=== PATIENT | female | born 1970 | race Caucasian/White ===

== ENCOUNTER → 2016-11-11 | Outpatient (CLI) | payer MEDICAID ==
[2016-11-11 13:29] LABS: Cancer Anitgen 125 <5.5 U/mL (<35.1)
== END | disposition home or self-care (01) ==
LOC: LABWHC1 11:56
PROVIDERS: ATTEND Obstetrics & Gynecology
DX: D49.59 Neoplasm of unspecified behavior of other genitourinary organ (principal)
CPT/HCPCS: 36415; 82378; 86304

== ENCOUNTER → 2016-11-20 | Outpatient (CLI) | payer MEDICAID ==
--- NOTE | 2016-11-20 08:34 | CT ---
EXAMINATION TYPE: CT soft tissue neck w con DATE OF EXAM: 11/20/2016 8:26 AM COMPARISON: NONE HISTORY: elevated CEA, hx of ovarian ca,pt states she feels lump in throat, CT DLP: 2134.6 mGycm CONTRAST: CT scan of the neck is performed with IV Contrast, patient injected with 100 mL of Omnipaque 300. Contrast enhanced CT of the neck was performed from the skull base through the lung apices. AIRWAY: The supraglottic, glottic, and subglottic portions of the airway appear patent and free of mass. SALIVARY GLANDS: The submandibular and parotid glands are free of mass or inflammatory process. THYROID GLAND: No nodules or masses seen. LYMPH NODES: No adenopathy seen greater than 1cm. LUNG APICES: No nodule or mass is seen. OTHER: Vascular structures are patent. No significant degenerative change of the cervical spine. N o abscess seen. IMPRESSION: No abnormality of the neck identified at this time. Correlate clinically.
--- NOTE | 2016-11-20 08:40 | CT ---
EXAMINATION TYPE: CT ChestAbdPelvis w con DATE OF EXAM: 11/20/2016 8:26 AM COMPARISON: 05/24/2016 HISTORY: elevated CEA, hx of ovarian ca CT DLP: 2134.6 mGycm CONTRAST: CT scan of the chest, abdomen and pelvis is performed with Oral Contrast and with IV Contrast, patien t injected with 100 mL of Omnipaque 300. CT Chest: LUNGS: The lungs are clear and free of infiltrate or atelectasis. 2 or 3 tiny 3 mm nodules in the rig ht middle lobe are nonspecific. In addition there are 1 or 2 small 3 mm nodules left lower lobe. No p leural effusion or CT evidence of interstitial lung disease. MEDIASTINUM: Thoracic aorta is of normal caliber. The heart is not enlarged. No evidence for media stinal mass or adenopathy. HILAR STRUCTURES: No evidence for mass. No hilar adenopathy is appreciated. OTHER: No significant abnormality. CONTRAST CT ABDOMEN AND PELVIS FINDINGS: LIVER/GB: No calcified gallstones. Stable 1.4 cm hypoattenuating lesion anterior segment right hepa tic lobe. Stable 6 mm low attenuating lesion left hepatic lobe lateral segment. No additional hepatic lesions are identified. Biliary tree is of normal caliber. PANCREAS: No inflammation. No distinct mass. SPLEEN: No splenic enlargement. No lesion seen. ADRENALS: No nodule. No thickening. KIDNEYS/BLADDER: No hydronephrosis. No nephrolithiasis. No disctinct renal mass. BOWEL: Normal appendix. Normal bowel caliber. No inflammation. GENITAL ORGANS: Previously noted large pelvic cystic mass has been removed in the interval. There is been hysterectomy. No evidence for recurrent or residual mass within the pelvis. LYMPH NODES: No greater than 1cm abdominal or pelvic lymph nodes are appreciated. AORTA: No significant abnormality. OSSEOUS STRUCTURES: No significant abnormality is seen. OTHER: Fat-containing umbilical hernia. IMPRESSION: 1. Removal of previously noted large pelvic cystic mass without evidence for residual lesion or tumor recurrence within the pelvis. 2. Stable low attenuating hepatic lesions are likely reflective of cysts. 3. No evidence for adenopathy. 4. Tiny 3 mm pulmonary nodular densities are nonspecific. Continued follow-up is advised.
== END | disposition home or self-care (01) ==
LOC: RADCTMAIN 07:49
PROVIDERS: ATTEND Obstetrics & Gynecology
DX: C56.9 Malignant neoplasm of unspecified ovary (principal); R97.0 Elevated carcinoembryonic antigen [CEA]
CPT/HCPCS: 70491; 71260; 74177; Q9967

== ENCOUNTER → 2016-11-29 | Outpatient (CLI) | payer MEDICAID ==
--- NOTE | 2016-11-29 09:06 | MM ---
Reason for exam: additional evaluation requested from prior study. Last mammogram was performed 10 months ago. History: Patient is postmenopausal and had first child at age 32. Family history of breast cancer in paternal cousin. Took hormonal contraceptives beginning at age 15. Physical Findings: Nurse did not find any significant physical abnormalities on exam. MG 3D Diag Mammo W/Cad LT CC and MLO view(s) were taken of the left breast. Prior study comparison: January 20, 2016, left breast MG 3d work up w/cad LT. January 15, 2016, bilateral MG 3d screening mammo w/cad. February 12, 2012, mammogram, performed at [facility]. There are scattered fibroglandular densities. There is no discrete abnormality. These results were verbally communicated with the patient and result sheet given to the patient on 11/29/16. ASSESSMENT: Negative, BI-RAD 1 RECOMMENDATION: Return to routine screening mammogram schedule for both breasts. Back on schedule for January 2017.
== END | disposition home or self-care (01) ==
LOC: RADMAMWWP 08:08
PROVIDERS: ATTEND Family Medicine
DX: R92.8 Other abnormal and inconclusive findings on diagnostic imaging of breast (principal)
CPT/HCPCS: G0206; G0279

== ENCOUNTER → 2017-02-19 | Outpatient (CLI) | payer MEDICAID ==
--- NOTE | 2017-02-19 14:56 | CT ---
EXAMINATION TYPE: CT ChestAbdPelvis w con DATE OF EXAM: 02/19/2017 INDICATION: malignant neoplasm of unspecified ovary COMPARISON: 11/20/2016 CT DLP: 1611 mGycm CONTRAST: Performed with Oral Contrast and with IV Contrast, patient injected with 100 mL of Omnipaque 300. TECHNIQUE: Axial images at 5 mm thick sections. Reconstructed images in the coronal plane. Delayed images through the kidneys. FINDINGS: CT CHEST: Portion of the thyroid visualized is normal. No suspicious lung nodules or focal infiltrates are present. No enlarged mediastinal or hilar adenopathy is evident. The ascending aorta diameter at the level of the main pulmonary artery is 2.9 cm. The main pulmonary artery diameter at the bifurcation is 2.7 cm. Coronary artery calcification is noted. CT ABDOMEN: There is an anterior abdominal wall hernia in the periumbilical region which contains a p ortion of the transverse colon and fecal debris. No obstruction is evident. Liver: There is a 1.8 cm cyst measuring 4 Hounsfield units right lobe liver. Liver otherwise appears unremarkable. Spleen: Normal Pancreas: Normal Adrenal glands: The adrenal glands are normal. Gallbladder: Normal Kidneys: No masses are evident. No hydronephrosis is present. No cysts are present. Delayed images were obtained through the kidneys, which remain unremarkable. Aorta: Normal Inferior vena cava: Normal. CT PELVIS: Loops of bowel within the abdomen and pelvis are normal. There is moderate fecal retention throug hout the colon. Appendix: Not visualized Urinary bladder: Normal. Genitourinary structures: Uterus and ovaries are not identified. No suspicious fluid is within the ab domen or pelvis. No omental caking is evident. Osseous structures: No suspicious lytic or sclerotic lesions. Tarlov cysts are likely within the sacr um. IMPRESSIONS: 1. No suspicious changes for recurrent or metastatic ovarian cancer. 2. Periumbilical hernia containing a loop of colon. No obstruction is evident. 3. Moderate fecal retention
== END | disposition home or self-care (01) ==
LOC: RADCTMAIN 12:11
PROVIDERS: ATTEND Obstetrics & Gynecology
DX: C56.9 Malignant neoplasm of unspecified ovary (principal); K42.9 Umbilical hernia without obstruction or gangrene
CPT/HCPCS: 71260; 74177; Q9967

== ENCOUNTER → 2017-02-24 | Outpatient (CLI) | payer MEDICAID ==
[2017-02-24 14:03] LABS: Cancer Anitgen 125 5.7 U/mL (<35.1)
== END | disposition home or self-care (01) ==
LOC: LABWHC1 12:54
PROVIDERS: ATTEND Obstetrics & Gynecology
DX: C56.9 Malignant neoplasm of unspecified ovary (principal)
CPT/HCPCS: 36415; 82378; 86301; 86304

== ENCOUNTER → 2017-03-29 | Outpatient (CLI) | payer MEDICAID ==
--- NOTE | 2017-03-30 08:59 | MM ---
Reason for exam: screening (asymptomatic). Last mammogram was performed 4 months ago. History: Patient is postmenopausal, has history of ovarian cancer at age 46, and had first child at age 32. Family history of breast cancer in paternal cousin and breast cancer in mother at age 57. Took hormonal contraceptives beginning at age 15. Physical Findings: A clinical breast exam by your physician is recommended on an annual basis and results should be correlated with mammographic findings. MG 3D Screening Mammo W/Cad Bilateral CC and MLO view(s) were taken. XCCL view(s) were taken of the right breast. Prior study comparison: November 29, 2016, left breast MG 3d diag mammo w/cad LT. January 15, 2016, bilateral MG 3d screening mammo w/cad. No significant changes when compared with prior studies. ASSESSMENT: Benign, BI-RAD 2 RECOMMENDATION: Routine screening mammogram of both breasts in 1 year.
== END | disposition home or self-care (01) ==
LOC: RADMAMWWP 15:04
PROVIDERS: ATTEND Family Medicine
DX: Z12.31 Encounter for screening mammogram for malignant neoplasm of breast (principal)
CPT/HCPCS: 77063; G0202

== ENCOUNTER → 2017-06-25 | Outpatient (CLI) | payer MEDICAID ==
[2017-06-26 02:09] LABS: Cancer Antigen 125 26.2 U/mL (0.0-30.1)
== END | disposition home or self-care (01) ==
LOC: LABWHC1 16:43
PROVIDERS: ATTEND Obstetrics & Gynecology
DX: C56.9 Malignant neoplasm of unspecified ovary (principal)
CPT/HCPCS: 36415; 82378; 86301; 86304

== ENCOUNTER → 2017-10-29 | Outpatient (CLI) | payer MEDICAID ==
--- NOTE | 2017-10-29 12:24 | CT ---
EXAMINATION TYPE: CT ChestAbdPelvis w con DATE OF EXAM: 10/29/2017 COMPARISON: CT chest abdomen and pelvis February 19, 2017 and older studies. HISTORY: Follow up scan per patient for ovarian borderline cancer per order. CT DLP: 1447 mGycm. Automated Exposure Control for Dose Reduction was Utilized. CONTRAST: CT scan of the thorax, abdomen and pelvis is performed with oral and with IV Contrast, patient inject ed with 100 mL of Omnipaque 300. FINDINGS: LUNGS: The lungs are grossly clear, there is no concerning parenchymal mass or nodule identified. T here is no pleural effusion or pneumothorax seen. The tracheobronchial tree is patent. MEDIASTINUM: There are no greater than 1 cm hilar or mediastinal lymph nodes. No pericardial effusi on is seen. OTHER: No additional significant abnormality is seen. LIVER/GB: A few punctate calcifications are redemonstrated scattered throughout the liver. There are few hypodense lesions that are stable presumed benign. PANCREAS: No significant abnormality is seen. SPLEEN: No significant abnormality is seen. ADRENALS: No significant abnormality is seen. KIDNEYS: No significant abnormality is seen. BOWEL: No suspicious small or large bowel dilatation. Persistent moderate prominence of fecal materi al throughout the colon. Correlate for mild/moderate fecal retention. No significant change from prio r. GENITAL ORGANS: Scattered pelvic phleboliths are redemonstrated. Uterus is surgically absent. No susp icious adnexal masses are seen. LYMPH NODES: No greater than 1cm abdominal or pelvic lymph nodes are appreciated. OSSEOUS STRUCTURES: There is redemonstration of prominent Tarlov cysts in the sacrum. OTHER: There is interval repair of umbilical hernia containing bowel. There is new curvilinear densit y or mesh material identified at this level. A few surgical clips in the midline mesentery are redemo nstrated. IMPRESSION: No suspicious new mass or adenopathy is seen to suggest neoplastic recurrence.
== END | disposition home or self-care (01) ==
LOC: RADCTMAIN 09:28
PROVIDERS: ATTEND Obstetrics & Gynecology
DX: C56.9 Malignant neoplasm of unspecified ovary (principal)
CPT/HCPCS: 86304; 82378; 86301; 71260; 74177; 36415; Q9967

== ENCOUNTER → 2018-02-23 | Outpatient (CLI) | payer MEDICAID ==
[2018-02-23 17:43] LABS: Cancer Antigen 19-9 <1.2 U/mL (0.0-34.9)
== END | disposition home or self-care (01) ==
LOC: LABWHC1 10:22
PROVIDERS: ATTEND Obstetrics & Gynecology
DX: C56.9 Malignant neoplasm of unspecified ovary (principal)
CPT/HCPCS: 36415; 82378; 86301; 86304

== ENCOUNTER → 2018-04-26 | Outpatient (CLI) | payer MEDICAID ==
[2018-04-27 02:37] LABS: Hemoglobin A1C 5.5 % (4.0-6.0)
== END | disposition home or self-care (01) ==
LOC: LABWHC1 17:19
PROVIDERS: ATTEND Family Medicine
DX: Z00.00 Encounter for general adult medical examination without abnormal findings (principal)
CPT/HCPCS: 36415; 83036

== ENCOUNTER → 2018-05-23 | Outpatient (CLI) | payer MEDICAID ==
--- NOTE | 2018-05-24 11:38 | MM ---
Reason for exam: screening (asymptomatic). Last mammogram was performed 1 year and 2 months ago. History: Patient is postmenopausal, has history of ovarian cancer at age 46, and had first child at age 32. Family history of breast cancer in paternal cousin and breast cancer in mother at age 57. Took hormonal contraceptives beginning at age 15. Physical Findings: A clinical breast exam by your physician is recommended on an annual basis and results should be correlated with mammographic findings. MG 3D Screening Mammo W/Cad Bilateral CC and MLO view(s) were taken. Prior study comparison: March 29, 2017, bilateral MG 3d screening mammo w/cad. November 29, 2016, left breast MG 3d diag mammo w/cad LT. There are scattered fibroglandular densities. There are benign appearing round calcifications bilaterally. Asymmetric breast tissue in the right breast anterior slight inner quadrant, stable. There is no discrete abnormality. ASSESSMENT: Incomplete: need additional imaging evaluation, BI-RAD 0 RECOMMENDATION: Ultrasound of the right breast. [facility] will attempt to contact patient to return for ultrasound.
== END | disposition home or self-care (01) ==
LOC: RADMAMWWP 08:34
PROVIDERS: ATTEND Family Medicine
DX: Z12.31 Encounter for screening mammogram for malignant neoplasm of breast (principal)
CPT/HCPCS: 77063; 77067

== ENCOUNTER → 2018-05-29 | Outpatient (CLI) | payer MEDICAID ==
--- NOTE | 2018-05-30 11:02 | USB ---
Reason for exam: additional evaluation requested from abnormal screening. History: Patient is postmenopausal, has history of ovarian cancer at age 46, and had first child at age 32. Family history of breast cancer in paternal cousin and breast cancer in mother at age 57. Took hormonal contraceptives beginning at age 15. 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 US Breast Workup Limited RT Right limited breast ultrasound including focal area of concern, retroareolar and axilla demonstrates BB appears to correspond to skin lesion. No breast abnormality. These results were verbally communicated with the patient and result sheet given to the patient on 05/29/18. ASSESSMENT: Negative, BI-RAD 1 RECOMMENDATION: Clinical management of the right breast. Manage patient on a clinical basis.
== END | disposition home or self-care (01) ==
LOC: RADUSWWP 14:23
PROVIDERS: ATTEND Family Medicine
DX: R92.8 Other abnormal and inconclusive findings on diagnostic imaging of breast (principal)

== ENCOUNTER → 2018-06-29 | Outpatient (CLI) | payer MEDICAID | END | disposition home or self-care (01) | LOC: LABWHC1 09:24 | PROVIDERS: ATTEND Obstetrics & Gynecology | DX: C56.9 Malignant neoplasm of unspecified ovary (principal) | CPT/HCPCS: 36415; 82378; 86304 ==

== ENCOUNTER → 2018-10-28 | Outpatient (CLI) | payer MEDICAID ==
[2018-10-28 08:41] LABS: Blood Urea Nitrogen 18 mg/dL (7-17)
--- NOTE | 2018-10-28 16:15 | CT ---
EXAMINATION TYPE: CT ChestAbdPelvis w con DATE OF EXAM: 10/28/2018 INDICATION: Follow up study for history of ovarian Cancer. COMPARISON: 10/29/2017 CT DLP: 1416.1 mGycm CONTRAST: Performed with Oral Contrast and with IV Contrast, patient injected with 100 mL of Isovue 300. TECHNIQUE: Axial images at 5 mm thick sections. Reconstructed images in the coronal plane. Delayed images through the kidneys. FINDINGS: CT CHEST: Portion of the thyroid visualized is normal. No suspicious lung nodules or focal infiltrates are present. No enlarged mediastinal or hilar adenopathy is evident. The ascending aorta diameter at the level of the main pulmonary artery is 2.9 cm. The main pulmonary artery diameter at the bifurcation is 3.0 cm. Mild coronary artery calcifications present. CT ABDOMEN: Liver: There is a 1.9 cm cyst in the lateral right lobe liver. Spleen: Normal Pancreas: Normal Adrenal glands: The adrenal glands are normal. Gallbladder: Normal Kidneys: No masses are evident. No hydronephrosis is present. No cysts are present. Delayed images were obtained through the kidneys, which remain unremarkable. Aorta: Normal Inferior vena cava: Normal. CT PELVIS: Loops of bowel within the abdomen and pelvis are normal. There are loops of bowel which are incom pletely distended or lack oral contrast limiting their evaluation. Mild fecal debris is through the c olon. Appendix: Not identified. No suspicious dilated tubular structures are evident. No inflammatory wilkinson es are evident. Urinary bladder: Normal. Genitourinary structures: Uterus and ovaries are not identified. No omental caking is evident. No lar ge cysts are evident. No ascites or pleural effusions evident. Osseous structures: No suspicious lytic or sclerotic lesions. IMPRESSIONS: 1. No suspicious changes suggest recurrent or metastatic ovarian cancer.
== END | disposition home or self-care (01) ==
LOC: RADCTMAIN 08:04
PROVIDERS: ATTEND Obstetrics & Gynecology
DX: Z08 Encounter for follow-up examination after completed treatment for malignant neoplasm (principal); Z85.43 Personal history of malignant neoplasm of ovary
CPT/HCPCS: 86304; 82378; 82565; 84520; 71260; 74177; 36415; Q9967

== ENCOUNTER → 2019-02-28 | Outpatient (CLI) | payer MEDICAID | LOC: LABWHC1 08:48 | PROVIDERS: ATTEND Obstetrics & Gynecology | DX: Z12.9 Encounter for screening for malignant neoplasm, site unspecified (principal) | CPT/HCPCS: 36415; 82378; 86304 ==

== ENCOUNTER → 2019-04-12 | Outpatient (CLI) | payer MEDICAID ==
[2019-04-12 12:09] LABS: Basophils # (A) 0.1 k/uL (0-0.2); Basophils % (A) 1 %; Eosinophils # (A) 0.3 k/uL (0-0.7); Eosinophils % (A) 5 %; HCT 44.6 % (34.0-46.0); HGB 14.3 gm/dL (11.4-16.0); Lymphocytes # (A) 1.8 k/uL (1.0-4.8); Lymphocytes % (A) 30 %; MCH 28.3 pg (25.0-35.0); MCV 88.4 fL (80.0-100.0); Mean Platelet Volume 6.7; Monocytes # (A) 0.4 k/uL (0-1.0); Monocytes % (A) 7 %; Neutrophils # (A) 3.3 k/uL (1.3-7.7); Neutrophils % (A) 55 %; Platelet Count 305 k/uL (150-450); RBC 5.04 m/uL (3.80-5.40); RDW 13.3 % (11.5-15.5); WBC 5.9 k/uL (3.8-10.6)
[2019-04-12 17:08] LABS: Vitamin D 25 Hydroxy 31.7 ng/mL (30.0-100.0)
[2019-04-12 17:32] LABS: African American GFR (CKD) 117.1 (60.0-200.0); Albumin 4.4 g/dL (3.80-4.90); Albumin/Globulin Ratio 1.91 (1.60-3.17); Anion Gap 8.5 mmol/L (4.00-12.00); BUN/Creat Ratio 25.71 Ratio (12.00-20.00); Calcium 9.2 mg/dL (8.7-10.3); Carbon Dioxide 28.5 mmol/L (21.6-31.8); Globulin 2.3 g/dL (1.6-3.3); Potassium 4.1 mmol/L (3.5-5.5); T4, Free (Free Thyroxine) 0.9 ng/dL (0.80-1.80); Total Bilirubin 0.4 mg/dL (0.3-1.2); Total Protein 6.7 g/dL (6.2-8.2)
[2019-04-12 19:30] LABS: Hemoglobin A1C 5.7 % (4.0-6.0)
== END | disposition home or self-care (01) ==
LOC: LABWHC1 11:46
PROVIDERS: ATTEND Family Medicine
DX: Z00.00 Encounter for general adult medical examination without abnormal findings (principal); E03.8 Other specified hypothyroidism; E55.9 Vitamin D deficiency, unspecified; R63.5 Abnormal weight gain; H53.459 Other localized visual field defect, unspecified eye
CPT/HCPCS: 36415; 80053; 80061; 82306; 83036; 84146; 84439; 84443; 84481; 85025

== ENCOUNTER → 2019-05-29 | Outpatient (CLI) | payer MEDICAID ==
--- NOTE | 2019-05-30 11:33 | MM ---
Reason for exam: screening (asymptomatic). Last mammogram was performed 1 year ago. History: Patient is postmenopausal, has history of ovarian cancer at age 46, and had first child at age 32. Family history of breast cancer in paternal cousin, breast cancer in mother at age 57, and breast cancer in maternal aunt at age 70. Took hormonal contraceptives beginning at age 15. Physical Findings: A clinical breast exam by your physician is recommended on an annual basis and results should be correlated with mammographic findings. MG 3D Screening Mammo W/Cad Bilateral CC and MLO view(s) were taken. Prior study comparison: May 23, 2018, bilateral MG 3d screening mammo w/cad. March 29, 2017, bilateral MG 3d screening mammo w/cad. There are scattered fibroglandular densities. There is no discrete abnormality. No significant changes when compared with prior studies. ASSESSMENT: Negative, BI-RAD 1 RECOMMENDATION: Routine screening mammogram of both breasts in 1 year.
== END ==
LOC: RADMAMWWP 08:05
PROVIDERS: ATTEND Family Medicine
DX: Z12.31 Encounter for screening mammogram for malignant neoplasm of breast (principal)
CPT/HCPCS: 77063; 77067

== ENCOUNTER → 2019-06-04 | Outpatient (CLI) | payer MEDICAID ==
--- NOTE | 2019-06-04 11:07 | XR ---
EXAMINATION TYPE: XR chest 2V DATE OF EXAM: 06/04/2019 COMPARISON: Chest x-ray December 21, 2009. CT chest October 28, 2018 HISTORY: Ovarian cancer with elevated CEA. TECHNIQUE: Frontal and lateral views of the chest are obtained. FINDINGS: There is no focal air space opacity, pleural effusion, or pneumothorax seen. The cardiac silhouette size is upper limits of normal in size. Overlying sternal wires are seen. The osseous str uctures are intact. IMPRESSION: No acute cardiopulmonary process.
--- NOTE | 2019-06-04 12:51 | CT ---
EXAMINATION TYPE: CT brain wo con DATE OF EXAM: 06/04/2019 HISTORY: loss of peripheral vision, history of ovarian CA CT DLP: 1012.7 mGycm. Automated Exposure Control for Dose Reduction was Utilized. TECHNIQUE: CT scan of the head is performed without contrast. COMPARISON: None. FINDINGS: There is no acute intracranial hemorrhage or midline shift identified. Ventricles and sul ci are slightly prominent over the bilateral frontal lobes otherwise within normal limits. Vaughan-white matter differentiation is maintained. Patchy soft tissue density bilateral external auditory canals is thought to reflect cerumen. There is mild mucosal thickening with patchy opacification right sphen oid sinus. Globes are intact bilaterally. IMPRESSION: No acute intracranial hemorrhage or midline shift. There is mild bilateral frontal lobe atrophy. There is acute on chronic right sphenoid sinus disease.
--- NOTE | 2019-06-04 12:54 | CT ---
EXAMINATION TYPE: CT soft tissue neck wo con DATE OF EXAM: 06/04/2019 HISTORY: Malignant neoplasm of ovary with swelling. COMPARISON: CT neck November 20, 2016 CT DLP: 335.8 mGycm. Automated Exposure Control for Dose Reduction was Utilized. TECHNIQUE: CT scan of the neck is performed performed without IV contrast, axial images are obtained , coronal and sagittal reformatted images are reviewed. FINDINGS: Lack of IV contrast was noted to Limited evaluation for mucosal lesions and subcentimeter a denopathy. Airway: No gross abnormality seen. Parotid/submandibular glands: No gross abnormality seen. Carotid/Vascular Structures: No significant focal calcified plaque. Osseous Structures: Some mild disc space narrowing lower cervical levels. Other: No definitive greater than 1 cm neck adenopathy. Scattered prominent but subcentimeter lymph n odes throughout the neck bilaterally. Parapharyngeal fat spaces are maintained. Stable small mucous r etention cyst or polyp posterior inferior right maxillary sinus. IMPRESSION: No suspicious neck adenopathy. No significant change from prior.
--- NOTE | 2019-06-04 13:11 | CT ---
EXAMINATION TYPE: CT abdomen pelvis wo/w con DATE OF EXAM: 06/04/2019 HISTORY: Malignant neoplasm of ovary CT DLP: 2490.5mGycm Automated Exposure Control for Dose Reduction was Utilized. CONTRAST: CT scan of the abdomen and pelvis is performed with oral and without and with IV Contrast, patient in jected with 100 mL of Isovue 300. COMPARISON: CT October 28, 2018 and older CTs FINDINGS: LUNG BASES: Persistent right greater than left bibasilar linear scarring. LIVER/GB: Stable scattered hypodense lesions throughout the left hepatic lobe with an occasional left hepatic lobe punctate calcification. Stable 1.5 cm low dense lesion right hepatic lobe axial image 8 . Suspect simple thin-walled cysts. No new liver lesions are seen. PANCREAS: No significant abnormality is seen. SPLEEN: No significant abnormality is seen. ADRENALS: No significant abnormality is seen. KIDNEYS: No significant abnormality is seen. BOWEL: Oral contrast does not reach colon making evaluation of distal bowel suboptimal. Suboptimal di stention of stomach and duodenal sweep also noted. No suspicious small or large bowel dilatation UTERUS/ADNEXA: Uterus is surgically absent. Additional surgical clips along the left common iliac art evita are present. A few scattered pelvic phleboliths are seen. LYMPH NODES: No new greater than 1cm abdominal or pelvic lymph nodes are appreciated. 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 OTHER: No significant additional abnormality is seen. IMPRESSION: No suspicious new mass or adenopathy identified to suggest neoplastic recurrence.
[2019-06-04 17:10] LABS: Carcinoembryonic Antigen 8.3 ng/mL (0.0-4.9)
[2019-06-04 17:39] LABS: Cancer Antigen 125 7.1 U/mL (0.0-30.1)
== END ==
LOC: RADCTMAIN 10:03
PROVIDERS: ATTEND Obstetrics & Gynecology
DX: C56.9 Malignant neoplasm of unspecified ovary (principal); G31.89 Other specified degenerative diseases of nervous system
CPT/HCPCS: 86304; 82378; 71046; 70490; 70450; 74178; 36415; Q9967 ×2

== ENCOUNTER → 2020-03-19 | Outpatient (CLI) | payer MEDICAID ==
--- NOTE | 2020-03-20 07:58 | CT ---
EXAMINATION TYPE: CT ChestAbdPelvis w con DATE OF EXAM: 03/19/2020 COMPARISON: 06/04/2019 HISTORY: Follow up ovarian cancer CT DLP: 1534.3 mGycm CONTRAST: CT scan of the chest, abdomen and pelvis is performed with Oral Contrast and with IV Contrast, patien t injected with 100 mL of Isovue 300. CT Chest: LUNGS: The lungs are clear and free of infiltrate or atelectasis. No pulmonary nodule or mass is det ected. No pleural effusion or CT evidence of interstitial lung disease. MEDIASTINUM: Thoracic aorta is of normal caliber. The heart is not enlarged. No evidence for media stinal mass or adenopathy. HILAR STRUCTURES: No evidence for mass. No hilar adenopathy is appreciated. OTHER: No significant abnormality. CONTRAST CT ABDOMEN AND PELVIS FINDINGS: LIVER/GB: No calcified gallstones. Stable simple hepatic cysts.. Biliary tree is of normal caliber. PANCREAS: No inflammation. No distinct mass. SPLEEN: No splenic enlargement. No lesion seen. ADRENALS: No nodule. No thickening. KIDNEYS/BLADDER: No hydronephrosis. No nephrolithiasis. No disctinct renal mass. BOWEL: Normal appendix. Normal bowel caliber. No inflammation. GENITAL ORGANS: Hysterectomy and bilateral oophorectomy changes. No evidence for recurrent adnexal ma ss or residual mass. LYMPH NODES: No greater than 1cm abdominal or pelvic lymph nodes are appreciated. AORTA: No significant abnormality. OSSEOUS STRUCTURES: Lumbosacral cysts noted. OTHER: No significant additional abnormality is seen. IMPRESSION: 1. No evidence for tumor recurrence or metastatic disease.
== END | disposition home or self-care (01) ==
LOC: RADCTMAIN 17:38
PROVIDERS: ATTEND Obstetrics & Gynecology
DX: C56.9 Malignant neoplasm of unspecified ovary (principal)
CPT/HCPCS: 86304; 82378; 71260; 74177; Q9967

== ENCOUNTER → 2020-05-28 | Outpatient (CLI) | payer MEDICAID ==
[2020-05-28 08:47] LABS: Basophils % (A) 1 %; Eosinophils # (A) 0.3 k/uL (0-0.7); Eosinophils % (A) 5 %; HCT 42.6 % (34.0-46.0); HGB 13.5 gm/dL (11.4-16.0); Lymphocytes # (A) 1.8 k/uL (1.0-4.8); Lymphocytes % (A) 35 %; MCH 28.5 pg (25.0-35.0); MCHC 31.6 g/dL (31.0-37.0); MCV 90.2 fL (80.0-100.0); Monocytes # (A) 0.4 k/uL (0-1.0); Monocytes % (A) 9 %; Neutrophils # (A) 2.5 k/uL (1.3-7.7); Neutrophils % (A) 49 %; Platelet Count 315 k/uL (150-450); RBC 4.73 m/uL (3.80-5.40); RDW 12.2 % (11.5-15.5); WBC 5.2 k/uL (3.8-10.6)
[2020-05-28 18:27] LABS: African American GFR (CKD) 116.3 (60.0-200.0); Albumin 4.4 g/dL (3.80-4.90); Albumin/Globulin Ratio 2.32 (1.60-3.17); Anion Gap 7.8 mmol/L (4.00-12.00); BUN/Creat Ratio 22.86 Ratio (12.00-20.00); Calcium 9.3 mg/dL (8.7-10.3); Carbon Dioxide 26.2 mmol/L (21.6-31.8); Chol/HDL Ratio 2.86; Globulin 1.9 g/dL (1.6-3.3); LDL Cholesterol,Calculated 111.6 mg/dL (0.0-131.0); Non-African American GFR(CKD) 100.3 (60.0-200.0); Potassium 4.3 mmol/L (3.5-5.5); Total Bilirubin 0.6 mg/dL (0.2-1.2); Total Protein 6.3 g/dL (6.2-8.2); VLDL Calculation 16.4 mg/dL (5.00-40.00)
[2020-05-28 18:34] LABS: T4, Free (Free Thyroxine) 1.1 ng/dL (0.80-1.80)
== END | disposition home or self-care (01) ==
LOC: LABWHC1 07:57
PROVIDERS: ATTEND Family Medicine
DX: Z00.00 Encounter for general adult medical examination without abnormal findings (principal); E55.9 Vitamin D deficiency, unspecified; E03.8 Other specified hypothyroidism; R03.0 Elevated blood-pressure reading, without diagnosis of hypertension
CPT/HCPCS: 36415; 80053; 80061; 82306; 84439; 84443; 85025

== ENCOUNTER → 2020-07-16 | Outpatient (CLI) | payer MEDICAID | END | disposition home or self-care (01) | LOC: LABWHC1 09:56 | PROVIDERS: ATTEND Obstetrics & Gynecology | DX: C56.9 Malignant neoplasm of unspecified ovary (principal) | CPT/HCPCS: 36415; 82378; 86304 ==

== ENCOUNTER → 2020-08-11 | Outpatient (CLI) | payer MEDICAID ==
--- NOTE | 2020-08-11 22:34 | CONS ---
CONSULTATION DATE OF SERVICE: 08/11/2020 HISTORY OF PRESENT ILLNESS: This a 50-year-old lady has been evaluated in [facility] for possible obstructive sleep apnea-hypopnea syndrome. HISTORY OF PRESENT ILLNESS SLEEP-WAKE EVALUATION: SLEEP SCHEDULE: Patient usual sleep schedule on weekdays from 10 p.m. to 6 or 6:30 a.m. On weekends from midnight until 8 or 9 a.m. FALLING ASLEEP: Usually no problems with falling asleep. No TV in bedroom. DURING SLEEP: Patient sleeps usually in the back and side position. The patient snores and wakes up from sleep up to 6 times. She was told about low position of her soft palate before when she has had a surgery and anesthesia. DURING THE DAY/SLEEP WAKE EVALUATION: In the morning patient wakes up tired, has problems with concentration irritability. Arona Sleepiness Scale significantly increased to 13. PAST MEDICAL HISTORY: Positive for hypertension. Open angle glaucoma. PAST SURGICAL HISTORY: Atrial septal defect repair, tonsillectomy and adenoidectomy, cataract surgery bilaterally, total hysterectomy for ovarian tumor, hernia repair. MEDICATIONS: Lisinopril 5 mg once a day, levothyroxine 25 mcg once a day. Tramadol 50 mg 1-2 tablets a day on p.r.n. basis, Zyrtec 10 mg once a day. Pepcid 20 mg once a day, eye drops, Travoprost, Ativan 6 mg on a p.r.n. basis. REVIEW OF SYSTEMS: Awakenings from sleep, snoring, sleepiness during the day. FAMILY HISTORY: Arthritis. Asthma, lung problems, cancer, diabetes, thyroid problems. PHYSICAL EXAM: lady without distress, BP 129/76, HR 84, RR 15, height 5 feet 2.5 inches, weight 190 pounds. Body mass index 39.1, temperature 96, oxygen saturation at room air 96%. HEENT: Oropharynx moderately low position of soft palate, Mallampati 2-3. No JVD. Thyroid is not palpable. Neck measures 16-1/2 inches in circumference. NECK: Supple, no JVD. Thyroid is not palpable. LUNGS: Clear to percussion and to auscultation. Good air exchange. No wheezing or rhonchi. HEART: S1, S2 regular. No murmurs, gallops, or rubs. ABDOMEN: Soft and nontender. Bowel sounds are present. No organomegaly appreciated. EXTREMITIES: No clubbing or cyanosis. 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 Cranial nerves 2 to 7 intact. There is no fasciculation or atrophy. noted. No focal deficits observed. IMPRESSION: 1. Snoring, multiple awakenings from sleep, moderately low position of soft palate, wide neck, sleepiness, obstructive sleep apnea-hypopnea syndrome. 2. Obesity. 3. Hypertension. 4. Hypothyroidism. 5. History of open angle glaucoma. 6. Status post total hysterectomy. 7. Status post atrial septal defect repair in 1974. 8. Status post tonsillectomy and adenoidectomy. 9. Status post total hysterectomy. PLAN: 1. Polysomnography for evaluation of patient's breathing during sleep. 2. CPAP/BiPAP titration if sleep study confirms obstructive sleep apnea-hypopnea syndrome. 3. Preferable position during sleep on the side. 4. No driving if patient feels any sleepiness. 5. I will see patient for follow up visit to explain results of testing and following plan. Thank you very much for referring this patient for consultation. Sincerely, Christopher Lopez MD, PhD, FAASM Diplomat of [employer] Administrator of [facility] [place] MMODL / IJN: [id number] /
== END | disposition home or self-care (01) ==
LOC: SLEEP 16:09
PROVIDERS: ATTEND Internal Medicine
DX: G47.33 Obstructive sleep apnea (adult) (pediatric) (principal); I10 Essential (primary) hypertension; E03.9 Hypothyroidism, unspecified; H40.10X0 Unspecified open-angle glaucoma, stage unspecified; Z86.69 Personal history of other diseases of the nervous system and sense organs; Z90.710 Acquired absence of both cervix and uterus; Z98.890 Other specified postprocedural states; Z79.890 Hormone replacement therapy; Z79.899 Other long term (current) drug therapy; Z79.891 Long term (current) use of opiate analgesic; Z99.89 Dependence on other enabling machines and devices
CPT/HCPCS: 99211

== ENCOUNTER → 2020-08-12 | Outpatient (CLI) | payer MEDICAID ==
--- NOTE | 2020-08-13 10:40 | MM ---
Reason for exam: screening (asymptomatic). Last mammogram was performed 1 year and 2 months ago. History: Patient is postmenopausal, has history of ovarian cancer at age 46, and had first child at age 32. Family history of breast cancer in paternal cousin, breast cancer in mother at age 57, and breast cancer in maternal aunt at age 70. Took hormonal contraceptives beginning at age 15. Physical Findings: A clinical breast exam by your physician is recommended on an annual basis and results should be correlated with mammographic findings. MG 3D Screening Mammo W/Cad Bilateral CC and MLO view(s) were taken. Prior study comparison: May 29, 2019, bilateral MG 3d screening mammo w/cad. May 23, 2018, bilateral MG 3d screening mammo w/cad. There are scattered fibroglandular densities. Benign oil cyst calcifications on both sides. No significant changes when compared with prior studies. ASSESSMENT: Negative, BI-RAD 1 RECOMMENDATION: Routine screening mammogram of both breasts in 1 year.
== END | disposition home or self-care (01) ==
LOC: RADMAMWWP 07:39
PROVIDERS: ATTEND Family Medicine
DX: Z12.31 Encounter for screening mammogram for malignant neoplasm of breast (principal)
CPT/HCPCS: 77063; 77067

== ENCOUNTER → 2020-12-22 | Outpatient (CLI) | payer MEDICAID ==
--- NOTE | 2020-12-22 11:30 | CT ---
EXAMINATION TYPE: CT ChestAbdPelvis w con DATE OF EXAM: 12/22/2020 COMPARISON: Most recent CT March 19, 2020 and older studies HISTORY: Ovarian carcinoma CT DLP: 1734 mGycm. Automated Exposure Control for Dose Reduction was Utilized. CONTRAST: CT scan of the thorax, abdomen and pelvis is performed with oral and with IV Contrast, patient inject ed with 100 ml mL of Isovue 300. FINDINGS: LUNGS: The lungs are grossly clear, there is no concerning new parenchymal mass or nodule identified. There is no pleural effusion or pneumothorax seen. The tracheobronchial tree is patent. MEDIASTINUM: There are no greater than 1 cm hilar or mediastinal lymph nodes. No cardiomegaly or pe ricardial effusion is seen. LIVER/GB: A few punctate calcifications are redemonstrated scattered throughout the liver. There are few scattered round hypodense lesions that are stable presumed benign. PANCREAS: No significant abnormality is seen. SPLEEN: No significant abnormality is seen. ADRENALS: No significant abnormality is seen. KIDNEYS: No significant abnormality is seen. BOWEL: No suspicious small or large bowel dilatation. Persistent moderate prominence of fecal materi al throughout the colon. Correlate for mild/moderate fecal retention. No significant change from prio r. Linear density in the right lower quadrant axial image 83, new from Prior study of uncertain etiol ogy, possible ingested food product or foreign body. Correlate clinically. GENITAL ORGANS: Scattered pelvic phleboliths are redemonstrated. Uterus is surgically absent. No susp icious adnexal masses are seen. LYMPH NODES: No new greater than 1cm abdominal or pelvic lymph nodes are appreciated. OSSEOUS STRUCTURES: There is redemonstration of prominent Tarlov cysts in the sacrum on sagittal imag e 64. OTHER: Prior umbilical hernia surgical repair redemonstrated. A few surgical clips in the peritoneal cavity are redemonstrated right midabdomen. IMPRESSION: No suspicious new mass or adenopathy is seen to suggest neoplastic recurrence.
== END | disposition home or self-care (01) ==
LOC: RADCTMAIN 08:09
PROVIDERS: ATTEND Obstetrics & Gynecology
DX: C56.9 Malignant neoplasm of unspecified ovary (principal)
CPT/HCPCS: 82378; 71260; 74177; 36415; Q9967

== ENCOUNTER → 2021-02-23 | Outpatient (CLI) | payer MEDICAID ==
--- NOTE | 2021-02-24 08:30 | SFUN ---
SLEEP CENTER FOLLOW UP NOTE DATE OF SERVICE: 02/23/2021 INTERVAL HISTORY: A 50-year-old lady who has been followed in Sleep Center for treatment of obstructive sleep apnea-hypopnea syndrome. Recently the patient had diagnostic polysomnogram which showed that the patient has obstructive sleep apnea and then she had CPAP titration and today is her first visit to Sleep Center after she received her CPAP unit. The patient is able to use her CPAP equipment every night for the whole night and she feels pretty comfortable with the machine, likes her mask, feels better during the day and sleeps better at night. Sometimes, when she does not get enough sleep, she may feel some sleepiness during the day like today her [place] Sleepiness Scale increased to 17 and the patient thinks this is because she has had some restricted sleep schedule secondary to busy family issues last night. I checked her CPAP unit pressure is 8 cm of water. Usage is 30/30 nights for more than 4 hours with average usage is 7.9 hours per night. Leak is only 4 L/minute and apnea- hypopnea index is 3.2, which is totally normal. MEDICATIONS: Lisinopril, levothyroxine, Tramadol, Zyrtec, Pepcid, Travoprost, Ativan. PHYSICAL EXAMINATION: GENERAL: Patient in no distress. VITAL SIGNS: BP 105/70, HR 57, RR 12, weight 190.8, temperature 96.3. HEENT: PERRLA, EOMI, evaluation of oropharynx showed tongue protrudes midline. Moderately low position of soft palate, Mallampati 2-3. NECK: Supple, no JVD. Thyroid is not palpable. LUNGS: Clear to percussion and to auscultation. Good air exchange. No wheezing or rhonchi. HEART: S1, S2 regular. No murmurs, gallops, or rubs. ABDOMEN: Soft and nontender. Bowel sounds are present. No organomegaly appreciated. EXTREMITIES: No clubbing or cyanosis. ELECTRICAL APPLIANCE REPAIRER: Awake, alert, and oriented X3. Cranial nerves 2 to 7 intact. There is no fasciculation or atrophy. noted. No focal deficits observed. IMPRESSION: 1. Obstructive sleep apnea-hypopnea syndrome. Patient demonstrated 100% compliance with CPAP treatment, benefitting from treatment. 2. Obesity with BMI 34.5. 3. Hypertension. 4. Hypothyroidism. 5. History of open angle glaucoma. 6. Status post total hysterectomy. 7. Status post atrial septal defect repair in 1974. 8. Status post tonsillectomy and adenoidectomy. PLAN 1. I changed regimen in the machine to automatic with range of pressure 6-10 cm of water. 2. Sleep hygiene with regular time in bed for at least 7-1/2 to 8 hours. 3. Precautions related to driving. No driving if feeling sleepiness. 4. I will maintain all necessary prescription for PAP supplies including mask, tube, filters. 5. Watching weight. 6. Follow-up visit in 4 months or earlier if patient has any problems. Thank you very much for allowing me to participate in the management of your patient. Sincerely, Christopher Lopez MD, PhD, FAASM Diplomat of [place] [employer] [place] [employer] Accounts Receivable Accountant of [facility] [place] MMDACIA / ÁNGEL: [phone] /
== END ==
LOC: SLEEP 16:39
PROVIDERS: ATTEND Internal Medicine
DX: G47.33 Obstructive sleep apnea (adult) (pediatric) (principal); E66.9 Obesity, unspecified; I10 Essential (primary) hypertension; E03.9 Hypothyroidism, unspecified; Z68.34 Body mass index [BMI] 34.0-34.9, adult; Z90.710 Acquired absence of both cervix and uterus; Z90.89 Acquired absence of other organs; Z87.74 Personal history of (corrected) congenital malformations of heart and circulatory system; Z86.69 Personal history of other diseases of the nervous system and sense organs; Z79.890 Hormone replacement therapy; Z79.899 Other long term (current) drug therapy

== ENCOUNTER → 2021-03-25 | Outpatient (CLI) | payer MEDICAID | LOC: LABWHC1 15:00 | PROVIDERS: ATTEND Family Medicine | DX: R09.81 Nasal congestion (principal); Z20.822 Contact with and (suspected) exposure to COVID-19 | CPT/HCPCS: U0003; U0005 ==

== ENCOUNTER → 2021-05-10 | Outpatient (CLI) | payer MEDICAID | END | disposition home or self-care (01) | LOC: LABWHC1 16:27 | PROVIDERS: ATTEND Obstetrics & Gynecology | DX: C56.1 Malignant neoplasm of right ovary (principal) | CPT/HCPCS: 36415; 82378; 86304 ==

== ENCOUNTER → 2021-06-23 | Outpatient (CLI) | payer MEDICAID ==
--- NOTE | 2021-06-23 21:17 | SFUN ---
SLEEP CENTER FOLLOW UP NOTE HISTORY: A 51-year-old lady has been followed in Sleep Center for treatment of obstructive sleep apnea-hypopnea syndrome. The patient continues to use her CPAP equipment every night for the whole night, used to use machine, does not feel comfortable without machine. The position of the machine is correct, lower than her head. [place] Sleepiness Scale today is 10 which is borderline. I checked CPAP unit. Range of the pressure is 6-10, average pressure 9.6 cm of water. Usage is 30/30 nights for more than 4 hours, 6.9 hours per night. Leak is only 2 L/minute. Apnea-hypopnea index is 2.2 which is perfect, but the patient mentioned that sometimes when she took a template application on the phone and apnea-hypopnea index increased to around 4. She feels more tired and sleepy in the day. MEDICATIONS: Lisinopril 5 mg once a day, levothyroxine 25 mg mcg once a day, tramadol 100 mg twice a day, Travoprost eyedrops, famotidine 20 mg twice a day, Zyrtec 10 mg once a day, melatonin 3 mg at bedtime, vitamins B12 and D, magnesium supplements. PHYSICAL EXAMINATION: GENERAL: Patient in no distress. BP 121/78, HR 68, RR 14, height 5 feet 2-3/4 inches, weight 174.6, body mass index 31.1, temperature 97.4, oxygen saturation at room air 98%. HEENT: PERRLA, EOMI, evaluation of oropharynx shows moderately low position of soft palate. NECK: Supple, no JVD. Thyroid is not palpable. LUNGS: Clear to percussion and to auscultation. Good air exchange. No wheezing or rhonchi. HEART: S1, S2 regular. No murmurs, gallops, or rubs. ABDOMEN: Slightly obese. Bowel sounds are present. No organomegaly appreciated. EXTREMITIES: No clubbing or cyanosis. SENIOR TELECOMMUNICATIONS CONSULTANT: Awake, alert, and oriented X3. Cranial nerves 2 to 7 intact. There is no fasciculation or atrophy. noted. No focal deficits observed. IMPRESSION: 1. Obstructive sleep apnea-hypopnea syndrome, patient demonstrated 100% compliance with treatment benefitting from treatment, normal respiration with CPAP and some days when apnea-hypopnea index more patient feel more tired than and days when apnea-hypopnea index is less. 2. Mild obesity. 3. Hypertension. 4. Recently found to have some pulmonary valve insufficiency. 5. Hypothyroidism. 6. History of open angle glaucoma. 7. Status post total hysterectomy. 8. Status post atrial septal defect repair 1974. 9. Status post tonsillectomy and adenoidectomy. PLAN: I changed regimen in the machine to the level 6 to 12. 1. Patient will continue to use PAP equipment every night for the whole night. 2. Sleep hygiene with regular time in bed for at least 7-1/2 to 8 hours. 3. Precautions related to driving. No driving if feeling sleepiness. 4. I will maintain all necessary prescription for PAP supplies including mask, tube, filters. 5. Watching weight. 6. Follow-up visit in 6 months or earlier if patient has any problems. Thank you very much for allowing me to participate in the management of your patient. Christopher Lopez MD, PhD, FAASM Diplomat of [employer] [employer] Sleep Medicine Board of [place] Board of Internal Medicine Lieutenant Fire Fighter of [facility] [place] MMODL / MICHELLEN: [phone] /
== END ==
LOC: SLEEP 16:24
PROVIDERS: ATTEND Internal Medicine
DX: G47.33 Obstructive sleep apnea (adult) (pediatric) (principal); E66.9 Obesity, unspecified; I10 Essential (primary) hypertension; E03.9 Hypothyroidism, unspecified; I37.1 Nonrheumatic pulmonary valve insufficiency; Z90.711 Acquired absence of uterus with remaining cervical stump; Z86.69 Personal history of other diseases of the nervous system and sense organs; Z98.890 Other specified postprocedural states; Z90.09 Acquired absence of other part of head and neck; Z99.89 Dependence on other enabling machines and devices; Z68.31 Body mass index [BMI] 31.0-31.9, adult; Z79.899 Other long term (current) drug therapy

== ENCOUNTER → 2021-12-28 | Outpatient (CLI) | payer MEDICAID ==
--- NOTE | 2021-12-28 18:47 | SFUN ---
SLEEP CENTER FOLLOW UP NOTE DATE OF SERVICE: 12/28/2021 This 51-year-old lady has been followed in Sleep Center for treatment of obstructive sleep apnea-hypopnea syndrome. The patient continues to use her CPAP equipment every night for the whole night. She is very satisfied with treatment and is getting her supplies on time. She sleeps well, does not snore. [place] Sleepiness Scale today is 7. I checked her CPAP unit. Range of the pressure is from 6 to 12, average pressure 11.1, usage 30/30 nights for more than 4 hours, average 7.1 hours per night. Leak is 2 L/minute. Apnea-hypopnea index is only 1.8, which is absolutely perfect. MEDICATIONS: 1. Lisinopril 5 mg once a day. 2. Levothyroxine 25 mcg once a day. 3. Tramadol 100 mg twice a day. 4. Famotidine 20 mg once a day. 5. Omeprazole 20 mg once a day. 6. Zyrtec 10 mg once a day. 7. prost eyedrops. PHYSICAL EXAMINATION: GENERAL: Pleasant patient in no distress. VITAL SIGNS: BP 115/76, HR 67, RR 16, weight 178.8, height 5 feet 2-3/4 inches, temperature 97.4, oxygen saturation at room air 98%. HEENT: PERRLA, EOMI, evaluation of oropharynx showed tongue protrudes midline. Moderately low position of soft palate. NECK: Supple, no JVD. Thyroid is not palpable. LUNGS: Clear to percussion and to auscultation. Good air exchange. No wheezing or rhonchi. HEART: S1, S2 regular. No murmurs, gallops, or rubs. ABDOMEN: Soft and nontender. Bowel sounds are present. No organomegaly appreciated. EXTREMITIES: No clubbing or cyanosis. CONFERENCE SERVICE COORDINATOR: Awake, alert, and oriented X3. Cranial nerves 2 to 7 intact. There is no fasciculation or atrophy. noted. No focal deficits observed. IMPRESSION: 1. Obstructive sleep apnea-hypopnea syndrome. Patient demonstrated great compliance with treatment, benefitting from treatment. 2. Hypertension. 3. Mild obesity. 4. History of pulmonary valve insufficiency. 5. Hypothyroidism. 6. History of open-angle glaucoma. 7. Status post total hysterectomy. 8. Status post atrial septal defect repair in 1974. 9. Status post tonsillectomy and adenoidectomy. PLAN: 1. Patient will continue to use PAP equipment every night for the whole night. 2. Sleep hygiene with regular time in bed for at least 7-1/2 to 8 hours. 3. Precautions related to driving. No driving if feeling sleepiness. 4. I will maintain all necessary prescription for PAP supplies including mask, tube, filters. 5. Watching weight. 6. Follow-up visit in 6 months or earlier if patient has any problems. Thank you very much for allowing me to participate in the management of your patient. Sincerely, Christopher Lopez MD, PhD, FAASM Diplomat of [place] [employer] Special[employer] Sleep Medicine Board of [place] [employer] of Internal Medicine Communications Tower Technician of [facility] [place] MMODL / MICHELLEN: [phone] /
== END ==
LOC: SLEEP 16:16
PROVIDERS: ATTEND Internal Medicine
DX: G47.33 Obstructive sleep apnea (adult) (pediatric) (principal); I10 Essential (primary) hypertension; E66.9 Obesity, unspecified; Z87.09 Personal history of other diseases of the respiratory system; E03.9 Hypothyroidism, unspecified; Z90.711 Acquired absence of uterus with remaining cervical stump; Z86.69 Personal history of other diseases of the nervous system and sense organs; Z86.79 Personal history of other diseases of the circulatory system; Z90.09 Acquired absence of other part of head and neck; Z99.89 Dependence on other enabling machines and devices; Z79.890 Hormone replacement therapy

== ENCOUNTER → 2022-09-28 | Outpatient (CLI) | payer MEDICAID ==
--- NOTE | 2022-09-28 17:08 | P.PN ---
Subjective DATE: 09/28/2022 FOLLOW UP VISIT. Patient with obstructive sleep apnea hypopnea syndrome return to sleep center for follow-up visit. Information from previous visit have been reviewed. Patient is using PAP equipment every night for the whole night, getting PAP supplies in time. The patient does not have significant problems with the mask, PAP unit and humidification. [place] sleepiness scale is 3, which is normal. I checked information from PAP unit. PAP unit pressure 6-12, average 10.3 cm H2O. Usage is 100 % for more then 4 hours, average 6.9 hours per night. Leak is 0 l/m, which is in acceptable range. Apnea Hypopnea Index is 0.9, which is normal. MEDICATIONS:1. Lisinopril 5 mg once a day 2. Levothyroxine 25 g once a day 3. Concerta 36 mg once a day 4. Tramadol 100 mg twice a day 5. Omeprazole 20 mg twice a day 6. Zyrtec 10 once a day During physical exam: GENERAL: A pleasant patient without any distress. VITAL SIGNS: BP 136/80, HR 68, RR 14 , weight 192, temperature 97.7, oxygen saturation at room air 98 % . HEENT: PERRLA, EOMI.low position of soft palate, Mallapati 3 . NECK: Supple. No JVD. LUNGS: Clear to percussion and to auscultation. Good air exchange. No wheezing or rhonchi. HEART: S1, S2 regular. ABDOMEN: Soft and nontender. Slightly obese EXTREMITIES: No clubbing or cyanosis. TRACTOR CRANE ENGINEER: Awake, alert, and oriented x3. No focal deficit. Impressions: 1. Obstructive sleep apnea-hypopnea syndrome. Patient demonstrated great compliance with treatment, benefiting from treatment. 2. Mild obesity body mass index 34.5, patient increased her wait on 14 pounds since previous visit. 3. Hypertension. 4. History of insufficiency of pulmonary valve. 5. Hypothyroidism. 6. History of open angle glaucoma. 7. Status post total hysterectomy. 8. Status post atrial septal defect repair in 1974.. 9. Status post tonsillectomy and adenoidectomy. Plan: 1. Continue using PAP equipment every night for the whole night. 2. To change air filter at least 1-2 times per month. 3. PAP unit should stay lower then position of the head. 4. Advised patient to remove all remaining water from humidifier canister daily and make it dry after each usage. Refill canister with fresh distilled water before each usage. 5. Sleep hygiene with regular time in bed for at least 8 hours. 6. Precautions related to driving. No driving if feel any sleepiness. 7. I will maintain prescription for PAP supplies including mask, tube, filters. 8. Follow up visit in 6 months or earlier if patient has any problems. 9. Watching and losing weight. Thank you very much for allowing me to participate in the management of your patient. Christopher Lopez MD, PhD, FAASM. Diplomat of [place] Board [employer] Sleep Medicine, Sleep Medicine Board by [place] Board [employer] Internal Medicine Administrative Services Coordinator of [facility] [place]
== END ==
LOC: SLEEP 16:32
PROVIDERS: ATTEND Internal Medicine
DX: G47.33 Obstructive sleep apnea (adult) (pediatric) (principal); E03.9 Hypothyroidism, unspecified; I10 Essential (primary) hypertension; Z99.89 Dependence on other enabling machines and devices; E66.8 Other obesity; Z68.34 Body mass index [BMI] 34.0-34.9, adult; Z87.74 Personal history of (corrected) congenital malformations of heart and circulatory system; H40.10X0 Unspecified open-angle glaucoma, stage unspecified; Z90.710 Acquired absence of both cervix and uterus; Z90.89 Acquired absence of other organs; Z79.899 Other long term (current) drug therapy; Z79.890 Hormone replacement therapy
CPT/HCPCS: 99212

== ENCOUNTER → 2023-02-07 | Outpatient (CLI) | payer MEDICAID ==
--- NOTE | 2023-02-08 08:11 | MM ---
Reason for Exam: Screening (asymptomatic). Last mammogram was performed 1 year(s) and 1 month(s) ago. Patient History: Menarche at age 12. First Full-Term at age 32. Late child-bearing (after 30). Left ovary removed at age 46. Right ovary removed at age 46. Hysterectomy at age 46. Postmenopausal. Patient has history of breast feeding. Ovarian cancer, age 46. Hormonal Contraceptives, from age 15 until age 31. Maternal cousin had breast cancer, age 56. Maternal aunt had breast cancer, age 70. Mother had breast cancer, age 57. Risk Values: Audra 5 year model risk: 2.2%. NCI Lifetime model risk: 16.5%. Prior Study Comparison: 05/29/2019 Bilateral Screening Mammogram, [facility]. 08/12/2020 Bilateral Screening Mammogram, [facility]. 12/14/2021 Bilateral Screening Mammogram, [facility]. Tissue Density: The breast tissue is almost entirely fat. Findings: Analyzed By CAD. There is no suspicious group of microcalcifications or new suspicious mass in either breast. Overall Assessment: Negative, BI-RAD 1 Management: Screening Mammogram of both breasts in [address] [facility] will attempt to contact patient to return for supplemental views and ultrasound if indicated. Patient should continue monthly self-breast exams. A clinical breast exam by your physician is recommended on an annual basis. This exam should not preclude additional follow-up of suspicious palpable abnormalities. Note on Audra scores and lifetime risk: 1. A Audra score greater than 3% is considered moderate risk. If this is the case, consider specialist referral to assess eligibility for a risk reducing agent. 2. If overall lifetime risk for the development of breast cancer is 20% or higher, the patient may qualify for future screening with alternating mammogram and breast MRI. Electronically signed and approved by: Mauricio Matute DO
== END | disposition home or self-care (01) ==
LOC: RADMAMWWP 16:22
PROVIDERS: ATTEND Family Medicine
DX: Z12.31 Encounter for screening mammogram for malignant neoplasm of breast (principal); Z78.0 Asymptomatic menopausal state; Z80.3 Family history of malignant neoplasm of breast
CPT/HCPCS: 77063; 77067

== ENCOUNTER → 2023-04-25 | Outpatient (CLI) | payer MEDICAID ==
--- NOTE | 2023-04-25 17:03 | P.PN ---
Subjective DATE: 04/25/2023 FOLLOW UP VISIT. Patient with obstructive sleep apnea hypopnea syndrome return to sleep center for follow-up visit. Information from previous visit have been reviewed. Patient is using PAP equipment every night for the whole night, getting PAP supplies in time. The patient does not have significant problems with the mask, PAP unit and humidification. [place] sleepiness scale is 7, which is normal. I checked information from PAP unit. PAP unit pressure at 114/76 cm H2O. Usage is 90 % for more then 4 hours, average 6.5 hours per night. Leak is 1.8 l/m, which is in perfect range. Apnea Hypopnea Index is 1.8, which is normal. MEDICATIONS:1. Levothyroxine 25 g once a day 2. Lisinopril 5 mg once a day 3. Tramadol 50 mg as needed 4. Concerta 36 mg once a day 5. Omeprazole 20 mg once a day 6. Zyrtec 10 mg once a day During physical exam: GENERAL: A pleasant patient without any distress. VITAL SIGNS: BP 114/76, HR 73, RR 16 , weight 197.6, temperature 98.1, oxygen saturation at room air 96 % . HEENT: PERRLA, EOMI.low position of soft palate, Mallapati 3 . NECK: Supple. No JVD. LUNGS: Clear to percussion and to auscultation. Good air exchange. No wheezing or rhonchi. HEART: S1, S2 regular. ABDOMEN: Soft and nontender. Slightly obese EXTREMITIES: No clubbing or cyanosis. TAXICAB DRIVER: Awake, alert, and oriented x3. No focal deficit. Impressions: 1. Obstructive sleep apnea-hypopnea syndrome. Patient demonstrated great compliance with treatment, benefiting from treatment. 2. Hypertension. 3. Hypothyroidism. 4. History of insufficient pulmonary while. 5. Status post atrial septum defect repair in 1974. 6. History of open angle glaucoma. 7. Mild obesity, patient increased weight 15 pounds comparing to the previous visit. 8. Status post total hysterectomy. 9. Status post tonsillectomy and adenoidectomy. Plan: 1. Continue using PAP equipment every night for the whole night. 2. To change air filter at least 1-2 times per month. 3. PAP unit should stay lower then position of the head. 4. Advised patient to remove all remaining water from humidifier canister daily and make it dry after each usage. Refill canister with fresh distilled water before each usage. 5. Sleep hygiene with regular time in bed for at least 8 hours. 6. Precautions related to driving. No driving if feel any sleepiness. 7. I will maintain prescription for PAP supplies including mask, tube, filters. 8. Watching and losing weight. 9.Follow up visit in 6 months or earlier if patient has any problems. Thank you very much for allowing me to participate in the management of your patient. Christopher Lopez MD, PhD, FAASM. Diplomat of [place] Board of Sleep Medicine, Sleep Medicine Board by [place] [employer] of Internal Medicine Reinforcing Steel Placer of [facility] [place]
== END ==
LOC: 3 N SLEEP 16:34
PROVIDERS: ATTEND Internal Medicine
DX: G47.33 Obstructive sleep apnea (adult) (pediatric) (principal); E03.9 Hypothyroidism, unspecified; E66.9 Obesity, unspecified; H40.10X0 Unspecified open-angle glaucoma, stage unspecified; I10 Essential (primary) hypertension; Z79.890 Hormone replacement therapy; Z79.899 Other long term (current) drug therapy; Z90.710 Acquired absence of both cervix and uterus; Z98.890 Other specified postprocedural states; Z99.89 Dependence on other enabling machines and devices; Z87.74 Personal history of (corrected) congenital malformations of heart and circulatory system
CPT/HCPCS: 99212

== ENCOUNTER → 2023-07-17 | Outpatient (CLI) | payer MEDICAID ==
--- NOTE | 2023-07-17 12:08 | XR ---
EXAMINATION TYPE: XR chest 2V DATE OF EXAM: 07/17/2023 10:33 AM COMPARISON: Chest radiographs from 06/04/2019 TECHNIQUE: XR chest 2V Frontal and lateral views of the chest. CLINICAL INDICATION:Female, 53 years old with history of R09.89 respiratory symptoms; FINDINGS: Lungs/Pleura: There is no evidence of pleural effusion, focal consolidation, or pneumothorax. Pulmonary vascularity: Unremarkable. Heart/mediastinum: Cardiomediastinal silhouette is unremarkable. Musculoskeletal: No acute osseous pathology. Midline sternotomy wires are noted and stable. IMPRESSION: No acute cardiopulmonary disease/process.
== END | disposition home or self-care (01) ==
LOC: RADXRMAIN 10:14
PROVIDERS: ATTEND Family Medicine
DX: R09.89 Other specified symptoms and signs involving the circulatory and respiratory systems (principal)
CPT/HCPCS: 71046

== ENCOUNTER → 2023-10-20 | Outpatient (CLI) | payer OTHER ==
[2023-10-20 22:08] LABS: Basophils # (A) 0.07 X 10*3/uL (0.00-0.10); Basophils % (A) 1.4 %; Eosinophils # (A) 0.17 X 10*3/uL (0.04-0.35); Eosinophils % (A) 3.4 %; HCT 42.4 % (37.2-46.3); HGB 13.7 g/dL (12.0-15.0); Lymphocytes # (A) 2.45 X 10*3/uL (0.90-5.00); Lymphocytes % (A) 48.4 %; MCH 28.8 pg (27.0-32.0); MCHC 32.3 g/dL (32.0-37.0); MCV 89.3 FL (80.0-97.0); Mean Platelet Volume 9.7 FL (9.5-12.2); Monocytes # (A) 0.47 X 10*3/uL (0.20-1.00); Monocytes % (A) 9.3 %; NRBC Per 100 WBC 0 X 10*3/uL (0.00-0.01); Neutrophils # (A) 1.89 X 10*3/uL (1.80-7.70); Neutrophils % (A) 37.3 %; Platelet Count 349 X 10*3/uL (140-440); RBC 4.75 X 10*6/uL (4.10-5.20); WBC 5.06 X 10*3/uL (4.50-10.00)
[2023-10-20 22:29] LABS: ALT 11 U/L (8-44); AST 15 U/L (13-35); Albumin 4.4 g/dL (3.8-4.9); Albumin/Globulin Ratio 1.69 Ratio (1.60-3.17); Alkaline Phosphatase 129 U/L (41-126); Blood Urea Nitrogen 12.6 mg/dL (9.0-27.0); Calcium 9.7 mg/dL (8.7-10.3); Carbon Dioxide 24.6 mmol/L (21.6-31.8); Chloride 102 mmol/L (96-109); Globulin 2.6 g/dL (1.6-3.3); Glucose 97 mg/dL (70-110); LDL Cholesterol,Calculated 119.1 mg/dL (0.0-131.0); Sodium 140 mmol/L (135-145); T4, Free (Free Thyroxine) 1.38 ng/dL (0.80-1.80); Total Bilirubin 0.6 mg/dL (0.3-1.2)
== END | disposition home or self-care (01) ==
LOC: LABWHC1 11:49
PROVIDERS: ATTEND Family Medicine
DX: C56.9 Malignant neoplasm of unspecified ovary (principal); I10 Essential (primary) hypertension
CPT/HCPCS: 36415; 80053; 80061; 82378; 84439; 84443; 84481; 85025

== ENCOUNTER → 2023-11-07 | Outpatient (CLI) | payer OTHER ==
--- NOTE | 2023-11-07 17:14 | P.PN ---
Subjective DATE: 11/07/2023 FOLLOW UP VISIT. Patient with obstructive sleep apnea hypopnea syndrome return to sleep center for follow-up visit. Information from previous visit have been reviewed. Patient is using PAP equipment every night for the whole night, getting PAP supplies in time. The patient does not have significant problems with the mask, PAP unit and humidification. [place] sleepiness scale is 4. I checked information from PAP unit. PAP unit pressure 6-13, average 11.5 cm H2O. Usage is 100 % for more then 4 hours, average 7.5 hours per night. Leak is 2 l/m, which is in acceptable range. Apnea Hypopnea Index is 1.2, which is normal. MEDICATIONS:1. Omeprazole 20 mg once a day 2. Levothyroxine 25 g once a day 3. Lisinopril 5 mg once a day 4. Tramadol 50 mg as needed 5. Concerta 36 mg once a day 6. Zyrtec 10 mg once a day During physical exam: GENERAL: A pleasant patient without any distress. VITAL SIGNS: BP 119/84, HR 66, RR 14 , weight 202.2, temperature 98.0, oxygen saturation at room air 96 % . HEENT: PERRLA, EOMI.low position of soft palate, Mallapati 3 . NECK: Supple. No JVD. LUNGS: Clear to percussion and to auscultation. Good air exchange. No wheezing or rhonchi. HEART: S1, S2 regular. ABDOMEN: Soft and nontender.[] EXTREMITIES: No clubbing or cyanosis. CREDIT REVIEW MANAGER: Awake, alert, and oriented x3. No focal deficit. Impressions: 1. Obstructive sleep apnea-hypopnea syndrome. Patient demonstrated great compliance with treatment, benefiting from treatment. 2. Hypothyroidism. 3. Hypertension. 4. . Status post atrial septal defect repair in 1974. 5. History of insufficient pulmonary valve. 6. History of open angle glaucoma. 7. Status post total hysterectomy. 8. Status post tonsillectomy and adenoidectomy. Plan: 1. Continue using PAP equipment every night for the whole night. 2. To change air filter at least 1-2 times per month. 3. PAP unit should stay lower then position of the head. 4. Advised patient to remove all remaining water from humidifier canister daily and make it dry after each usage. Refill canister with fresh distilled water before each usage. 5. Sleep hygiene with regular time in bed for at least 8 hours. 6. Precautions related to driving. No driving if feel any sleepiness. 7. I will maintain prescription for PAP supplies including mask, tube, filters. 8. Follow up visit in 6 months or earlier if patient has any problems. 9. Watching and losing weight. Thank you very much for allowing me to participate in the management of your patient. Christopher Lopez MD, PhD, FAASM. Diplomat of [place] Board of Sleep Medicine, Sleep Medicine Board by [place] [employer] of Internal Medicine Consulting Sales Manager of [facility] [place]
== END ==
LOC: 3 N SLEEP 16:39
PROVIDERS: ATTEND Internal Medicine
DX: G47.33 Obstructive sleep apnea (adult) (pediatric) (principal); E03.9 Hypothyroidism, unspecified; I10 Essential (primary) hypertension; I37.1 Nonrheumatic pulmonary valve insufficiency; H40.10X0 Unspecified open-angle glaucoma, stage unspecified; Z90.710 Acquired absence of both cervix and uterus; Z98.890 Other specified postprocedural states; Z90.89 Acquired absence of other organs; Z79.890 Hormone replacement therapy; Z79.899 Other long term (current) drug therapy; Z99.89 Dependence on other enabling machines and devices

== ENCOUNTER → 2024-07-21 | Outpatient (CLI) | payer OTHER ==
--- NOTE | 2024-07-25 13:19 | MM ---
Reason for Exam: Screening (asymptomatic). Last mammogram was performed 1 year(s) and 6 month(s) ago. Patient History: Menarche at age 12. First Full-Term at age 32. Late child-bearing (after 29). Left ovary removed at age 46. Right ovary removed at age 46. Hysterectomy at age 46. Postmenopausal. Patient has history of breast feeding. Ovarian cancer, age 46. Hormonal Contraceptives, from age 15 until age 31. Maternal cousin had breast cancer, age 56. Maternal aunt had breast cancer, age 70. Mother had breast cancer, age 57. Risk Values: Audra 5 year model risk: 2.4%. NCI Lifetime model risk: 15.9%. Prior Study Comparison: 08/12/2020 Bilateral Screening Mammogram, [facility]. 12/14/2021 Bilateral Screening Mammogram, [facility]. 02/07/2023 Bilateral MG 3D screening mammo w/cad, [facility]. Tissue Density: There are scattered areas of fibroglandular density. Findings: Analyzed By CAD. Right breast: There is no suspicious group of microcalcifications or new suspicious mass. Benign-appearing calcifications right breast. Left breast: There is no suspicious group of microcalcifications or new suspicious mass. Benign-appearing calcifications left breast. Overall Assessment: Benign, BI-RAD 2 Management: Screening Mammogram of both breasts in [address] [facility] will attempt to contact patient to return for supplemental views and ultrasound if indicated. Patient should continue monthly self-breast exams. A clinical breast exam by your physician is recommended on an annual basis. This exam should not preclude additional follow-up of suspicious palpable abnormalities. Note on Audra scores and lifetime risk: 1. A Audra score greater than 3% is considered moderate risk. If this is the case, consider specialist referral to assess eligibility for a risk reducing agent. 2. If overall lifetime risk for the development of breast cancer is 20% or higher, the patient may qualify for future screening with alternating mammogram and breast MRI. [facility], , 07/25/2024 1:16 PM. Electronically signed and approved by: Mauricio Matute DO
== END | disposition home or self-care (01) ==
LOC: RADMAMWWP 15:52
PROVIDERS: ATTEND Family Medicine
DX: Z12.31 Encounter for screening mammogram for malignant neoplasm of breast (principal); R92.323 Mammographic fibroglandular density, bilateral breasts; Z80.3 Family history of malignant neoplasm of breast; Z78.0 Asymptomatic menopausal state
CPT/HCPCS: 77063; 77067

== ENCOUNTER → 2024-08-08 | Outpatient (CLI) | payer OTHER ==
--- NOTE | 2024-08-08 16:04 | CT ---
EXAMINATION TYPE: CT abdomen w con DATE OF EXAM: 08/08/2024 3:45 PM COMPARISON: 10/25/2021 CLINICAL INDICATION: Female, 54 years old with history of R10.11 RIGHT UPPER QUADRANT PAIN; Feeling a s though something is stuck in RUQ around liver area causing discomfort. TECHNIQUE: Axial CT abdomen w con;Sagittal and coronal reformats were created on a separate workstat ion. Contrast used:100ml mL of Isovue 300 with IV Contrast, (none if empty) Oral contrast used: with Oral Contrast (none if empty) CT DLP: 1141 mGycm, Automated exposure control for dose reduction was used. FINDINGS: LOWER CHEST: Unremarkable ABDOMEN LIVER: Left hepatic lobe cyst. GALLBLADDER AND BILE DUCTS: Gallbladder is within normal limits no evidence for cholelithiasis. No bi liary dilation or choledocholithiasis identified. PANCREAS: Unremarkable. SPLEEN: Unremarkable. ADRENAL GLANDS: Unremarkable. KIDNEYS AND URETERS: No evidence of hydronephrosis or renal calculus. The ureters are unremarkable. STOMACH AND BOWEL: No evidence of bowel obstruction. The appendix is likely surgically absent. There is a large amount stool in the right abdomen and particularly the hepatic flexure. PERITONEUM/RETROPERITONEUM: No evidence of pneumoperitoneum or free fluid. VASCULATURE: No evidence of aortic aneurysm. MUSCULOSKELETAL: No acute osseous abnormalities LYMPH NODES: No gross evidence for lymphadenopathy. SOFT TISSUE/ABDOMINAL WALL: Unremarkable IMPRESSION: 1. No evidence for acute abdominal process. The gallbladder is within normal limits. 2. Large amount stool in the right colon/hepatic flexure. [facility], , 08/08/2024 4:02 PM
== END | disposition home or self-care (01) ==
LOC: RADCTMAIN 14:38
PROVIDERS: ATTEND Family Medicine
DX: R19.5 Other fecal abnormalities (principal)
CPT/HCPCS: 74160; Q9967

== ENCOUNTER → 2024-09-18 | Outpatient (CLI) | payer OTHER ==
[2024-09-18 16:24] VITALS: BP 110/73; PULSE 72; RESP 16; TEMP 97.8
--- NOTE | 2024-09-18 17:01 | P.PROGSL ---
Subjective DATE: 09/18/2024 FOLLOW UP VISIT. Patient with obstructive sleep apnea hypopnea syndrome return to sleep center for follow-up visit. Information from previous visit have been reviewed. Patient is using PAP equipment every night for the whole night, getting PAP supplies in time. The patient does not have significant problems with the mask, PAP unit and humidification. [place] sleepiness scale is 7, which is in normal range. I checked information from PAP unit. PAP unit pressure 6-13, average 11.5 cm H2O. Usage is 100% for more then 4 hours, average 8 hours per night. Leak is 7 l/m, which is in acceptable range. Apnea Hypopnea Index is 1.7, which is normal. MEDICATIONS have been reviewed, please see below. During physical exam: GENERAL: A pleasant patient without any distress. VITAL SIGNS: Please see below, weight is 194 lbs. HEENT: PERRLA, EOMI.low position of soft palate, [place] 3. NECK: Supple. No JVD. LUNGS: Clear to percussion and to auscultation. Good air exchange. No wheezing or rhonchi. HEART: S1, S2 regular. ABDOMEN: Soft and nontender.[] EXTREMITIES: No clubbing or cyanosis. [employer] OFFICER: Awake, alert, and oriented x3. No focal deficit. Impressions: 1. Obstructive sleep apnea-hypopnea syndrome. Patient demonstrated great compliance with treatment, benefiting from treatment. 2. Mild obesity, BMI 35.4, patient lost 8 pounds comparing with previous visit. 3. Hypertension. 4. Hypothyroidism. 5. History of insufficient pulmonary valve. 6. History of open angle glaucoma. 7. Status post total hysterectomy. 8. Status post tonsillectomy and adenoidectomy. 9. History of headaches in the past, practically no headaches after started to use CPAP equipment. Plan: 1. Continue using PAP equipment every night for the whole night. 2. Sleep hygiene with regular time in bed for at least 7.5-8 hours 3. PAP unit should stay lower then position of the head. 4. Advised patient to remove all remaining water from humidifier canister daily and make it dry after each usage. Refill canister with fresh distilled water before each usage. 5. Watching and continue losing weight. 6. Precautions related to driving. No driving if feel any sleepiness. 7. I will maintain prescription for PAP supplies including mask, tube, filters. 8. Follow up visit in 8 months or earlier if patient has any problems. Thank you very much for allowing me to participate in the management of your patient. Christopher Lopez MD, PhD, FAASM. Diplomat of [place], Sleep Medicine Board by [place] Compensation Business Partner of [facility] [place] Objective - Vital Signs Vital Signs: Vital Signs Temp 97.8 F 09/18/24 16:22 Pulse 72 09/18/24 16:22 Resp 16 09/18/24 16:22 BP 110/73 09/18/24 16:22 Pulse Ox 97 09/18/24 16:22 FiO2 Intake & Output 09/17/24 09/18/24 09/18/24 18:59 06:59 18:59 Weight 87.997 kg Home Medications: Home Medications Medication Instructions Recorded Confirmed Type Cetirizine HCl 10 mg PO DAILY 09/18/24 09/18/24 History Cholecalciferol (Vitamin D3) See Rx Instructions .ROUTE .COMPLEX 09/18/24 09/18/24 History [Vitamin D3 (50 Mcg = 2000 Iu)] Latanoprost [Latanoprost 0.005%] See Rx Instructions .ROUTE .COMPLEX 09/18/24 09/18/24 History Levothyroxine Sodium [Tirosint] 25 mcg PO DAILY 09/18/24 09/18/24 History Magnesium Oxide [Mag-Ox] 400 mg PO DAILY 09/18/24 09/18/24 History Methylphenidate HCl 54 mg PO DAILY 09/18/24 09/18/24 History [Methylphenidate HCl ER] Omeprazole 20 mg PO BID 09/18/24 09/18/24 History Verapamil [Isoptin] 40 mg PO BID 09/18/24 09/18/24 History lisinopriL [Zestril] 5 mg PO DAILY 09/18/24 09/18/24 History traMADol HCL [Conzip] 100 mg PO BID 09/18/24 09/18/24 History
== END ==
LOC: 3 N SLEEP 15:41
PROVIDERS: ATTEND Internal Medicine
DX: G47.33 Obstructive sleep apnea (adult) (pediatric) (principal); E66.9 Obesity, unspecified; I10 Essential (primary) hypertension; E78.5 Hyperlipidemia, unspecified; Z86.79 Personal history of other diseases of the circulatory system; Z68.35 Body mass index [BMI] 35.0-35.9, adult; Z90.89 Acquired absence of other organs; Z86.69 Personal history of other diseases of the nervous system and sense organs; Z99.89 Dependence on other enabling machines and devices
CPT/HCPCS: 99212

== ENCOUNTER → 2025-01-13 | Outpatient (CLI) | payer OTHER ==
[2025-01-13 20:53] LABS: BUN/Creat Ratio 20.57 Ratio (12.00-20.00); Blood Urea Nitrogen 14.4 mg/dL (9.0-27.0); Calcium 9.2 mg/dL (8.7-10.3); Carbon Dioxide 25.3 mmol/L (21.6-31.8); Chloride 102 mmol/L (96-109); Glucose 93 mg/dL (70-110); Potassium 4.5 mmol/L (3.5-5.5); Sodium 138 mmol/L (135-145)
[2025-01-13 20:57] LABS: Basophils # (A) 0.09 X 10*3/uL (0.00-0.10); Basophils % (A) 1.7 %; Eosinophils # (A) 0.17 X 10*3/uL (0.04-0.35); Eosinophils % (A) 3.1 %; HCT 41.8 % (37.2-46.3); HGB 13.5 g/dL (12.0-15.0); Lymphocytes # (A) 2.12 X 10*3/uL (0.90-5.00); Lymphocytes % (A) 39.2 %; MCH 29.7 pg (27.0-32.0); MCHC 32.3 g/dL (32.0-37.0); MCV 92.1 FL (80.0-97.0); Mean Platelet Volume 9.8 FL (9.5-12.2); Monocytes % (A) 9.2 %; NRBC Per 100 WBC 0 X 10*3/uL (0.00-0.01); Neutrophils # (A) 2.52 X 10*3/uL (1.80-7.70); Neutrophils % (A) 46.6 %; Platelet Count 397 X 10*3/uL (140-440); RBC 4.54 X 10*6/uL (4.10-5.20); RDW 12.6 % (11.5-14.5); WBC 5.41 X 10*3/uL (4.50-10.00)
== END | disposition home or self-care (01) ==
LOC: LABWHC1 12:50
PROVIDERS: ATTEND Family Medicine
DX: E03.8 Other specified hypothyroidism (principal); I10 Essential (primary) hypertension; C56.9 Malignant neoplasm of unspecified ovary
CPT/HCPCS: 36415; 80048; 82378; 84439; 84443; 85025